=== PATIENT | female | born 1945 | race Hispanic/Latino ===

== ENCOUNTER 2021-02-10 06:29 | Day surgery (SDC) | payer MEDICARE, OTHER ==
[2021-02-10] MEDS ORDERED: SODIUM CHLORIDE 0.9% 500 ML 500 ML IV SCH (07:00)
[2021-02-10 07:24] LABS: Basophils # (Auto) 0.2 K/mm3 (0.0-0.1); Basophils % (Auto) 1.5 % (0.0-1.8); Hemoglobin 13.5 gm/dl (10.1-14.3); Lymphocytes # (Auto) 1.9 K/mm3 (1.2-5.4); Lymphocytes % (Auto) 17.3 % (13.4-35.0); Mean Corpuscular HGB Conc 33 % (30-34); Mean Corpuscular Volume 92 fl (79-97); Monocytes # (Auto) 0.1 K/mm3 (0.0-0.8); Monocytes % (Auto) 1.2 % (0.0-7.3); Platelet Count 289 K/mm3 (140-440); Red Blood Count 4.48 M/mm3 (3.65-5.03)
[2021-02-10 07:32] LABS: INR 1.03 (0.87-1.13)
[2021-02-10 07:33] LABS: BUN/Creatinine Ratio 32; Blood Urea Nitrogen 32 mg/dL (7-17); Calcium 9.2 mg/dL (8.4-10.2); Hemolysis Index 3; Partial Thromboplastin Time 24.1 Sec. (24.2-36.6)
[2021-02-10 08:47] LABS: Alanine Aminotransferase 21 units/L (7-56); Albumin 3.7 g/dL (3.9-5); BUN/Creatinine Ratio 34; Blood Urea Nitrogen 31 mg/dL (7-17); Calcium 9.2 mg/dL (8.4-10.2); Hemolysis Index 34
[2021-02-10] MEDS ORDERED: HEPARIN/NS 5000 UNIT/500ML 1,000 ML IR ONE (09:41)
[2021-02-10] MEDS ORDERED: HEPARIN 10,000 UNITS/10 ML VIAL ONE (09:41)
[2021-02-10] MEDS ORDERED: LIDOCAINE (2%) 20 MG/1 ML VIAL 20 ML MDV INFILTRATI ONE ×2 (09:42→10:53)
[2021-02-10] MEDS ORDERED: VERAPAMIL 5 MG/2 ML INJ ONE (09:42)
[2021-02-10] MEDS ORDERED: NITROGLYCERIN SYRINGE 3 ML ONE (09:42)
[2021-02-10] MEDS ORDERED: INSULIN REGULAR, HUMAN 100 UNITS/1 ML ONE (09:58)
[2021-02-10] MEDS ORDERED: diphenhydrAMINE 50 MG/ML VIAL ONE (10:04)
[2021-02-10] MEDS ORDERED: FAMOTIDINE 20 MG/2 ML INJ IV ONE (10:04)
[2021-02-10] MEDS ORDERED: methylPREDNISolone Sod Succinate 125 MG/2 ML INJ ONE (10:04)
[2021-02-10] MEDS: MIDAZOLAM 2 MG/2 ML INJ ONE ×2 (10:43→10:50)
[2021-02-10] MEDS: fentaNYL 100 MCG/2 ML INJ ONE ×3 (10:43→11:19)
[2021-02-10] MEDS ORDERED: NITROGLYCERIN 600 MCG/3 ML SYRINGE ART-SHEATH ONE (10:45)
--- NOTE | 2021-02-10 14:03 | Cardiac Catherization Report ---
DATE OF PROCEDURE: 02/10/2021 REFERRING PHYSICIAN: Dr. Chao. INDICATION FOR PROCEDURE: The patient is a very pleasant 75-year-old female with known multivessel coronary artery disease, diabetes, hypertension with chronic shortness of breath, on home O2, referred here for left and right heart catheterization. Risks, benefits and alternatives were explained at length prior to obtaining informed consent. DESCRIPTION OF PROCEDURE: The patient was brought to catheterization lab in postabsorptive state, prepped and draped in sterile fashion. Erich's test in right hand is normal. 2 mL of 2% lidocaine was anesthetized to the right wrist. A standard 6-Czech hydrophilic sheath was used to cannulate the right radial artery via modified Seldinger technique. Next, a standard 7-Czech sheath was placed in the right femoral vein via modified Seldinger technique. Left heart catheterization was performed via the right radial artery. A JL3.5 catheter was used in left main. No dampening or ventricularization. Angiography was performed in multiple projections. JR4 catheter was used to cross the aortic valve under fluoroscopic guidance. Left ventriculography performed in 30 degrees DAVIS and 30 degrees SAUNDRA projections via hand injection. The was catheter flushed. Manual pullback performed with continuous pressure monitoring. Catheter was used to engage the right coronary. No dampening or ventricularization. Cineangiography performed in multiple projections. JR4 catheter was used to cross the aortic valve under fluoroscopic guidance. Left ventriculography performed in 30 degrees DAVIS and 30-degree SAUNDRA projections via hand injection. Catheter was flushed. Manual pullback was performed with continuous pressure monitoring. Catheter used to engage the right coronary. No dampening or ventricularization. Cineangiography performed in multiple projections. Next, catheter removed from the body of a wire. Next, we turned our attention to the right heart catheterization. A 6-Czech balloon-tipped Scott was advanced under fluoroscopic guidance into the right ventricle. Scott wire was used to place in the pulmonary capillary wedge pressure position carefully. Wedge pressure is taken. Pulmonary arterial/RV/RA/IVC/SVC pressures and sats are performed. FA sat is performed. Next, catheter was removed from the body, sheath was removed, manual pressure to achieve hemostasis. Patient had no complications. Tolerated the procedure well. I directly supervised the administration of moderate sedation from 10:41 a.m. to 11:30 a.m. No immediate complications were identified. FINDINGS: Aortic pressure is 180/80, LV pressure is 180, LVEDP of 18 mmHg. Left ventricle reveals normal systolic performance with estimated ejection fraction of 55-60%. Pulmonary capillary wedge pressure is 20. PA pressure is 50 with a mean of 30. RV pressure is 40 with RV mean of 17. RA mean is 12. PA sat is 66. RA sat is 65. RV sat is 67. IVC sat is 65. SVC sat is 65. Cardiac output is 2.3. Cardiac index is 2.4. Nelsy is 30.5. Qp/Qs is 1.07. SVR is 3348. PVR is 195. TPVR is 977. CORONARY ANATOMY: This is a strongly right dominant system. Left main without significant disease, bifurcates into left anterior descending, left circumflex. LAD is a moderate-sized vessel coursing the anterior groove, wraps around the apex. Small vessels in the LAD. Stents in the mid LAD and diagonal are patent. 25% mid LAD stenosis distal to the stent. No obstructive disease identified. Left circumflex is a moderate-sized vessel, courses AV groove. Stent in the OM trunk was patent. There is a 25% stenosis distal to the stent, but no obstructive disease identified. Right coronary is a large vessel, courses AV groove, distally bifurcates posterior descending and posterolateral branches. There is mild small vessel disease distally, but no significant obstructive disease identified. CONCLUSION: 1. Moderate nonobstructive coronary disease in this right dominant system. Patent stents noted in the circumflex, LAD, and diagonal. 25% mid OM1 stenosis, 25% mid LAD stenosis. Right coronary with nonobstructive disease proximal and mid segment. Moderate diffuse small vessel disease distally. 2. Normal left ventricular systolic performance. Estimated ejection fraction 55-60%. 3. No evidence of aortic stenosis. 4. High normal LVEDP. 5. Mild to moderate pulmonary hypertension with a PA pressure of 50, mean of 30, pulmonary capillary wedge pressure of 20, RA mean of 12, LVEDP of 20. These findings are consistent with mild to moderate pulmonary hypertension. At this point, the patient is clinically stable. Follow up with Dr. Chao in the office. Standard radial and groin care. Results of procedure was explained to the patient and family. All questions and concerns were addressed. TID: [id number] RECEIPT: [id number] SRIRAM/ELENO
[2021-02-10 14:14] VITALS: BP 148/65
[2021-02-10] MEDS ORDERED: KETOROLAC 30 MG/1 ML INJ ONE (14:40)
[2021-02-10] MEDS ORDERED: HYDROcodone/ACETAMINOPHEN 5-325 MG TAB PO NR (14:45)
--- NOTE | 2021-02-10 15:18 | Short Stay Summary ---
Short Stay Documentation Date of service: 02/10/21 - History H&P: obtained from office - Allergies and Medications Current Medications: Allergies Fulvyui-Bei-Mkh Reductase Inhibitor Allergy (Verified 02/10/21 06:58) cough, joint pain contrast dye Allergy (Uncoded 02/10/21 06:58) Hives Home Medications Medication Instructions Recorded Confirmed Last Taken Type Alirocumab [Praluent Pen] 150 mg SQ Q2W 02/10/21 02/10/21 02/09/21 History Aspirin [Adult Aspirin] 81 mg PO DAILY 02/10/21 02/10/21 02/10/21 History ISOSORBIDE MONOnitrate [Imdur ER] 30 mg PO DAILY 02/10/21 02/10/21 02/09/21 History Insulin Detemir (Nf) [Levemir 20 unit SQ BID 02/10/21 02/10/21 02/09/21 History Flextouch (Nf)] Levothyroxine [Synthroid] 50 mcg PO QAM 02/10/21 02/10/21 02/10/21 History Metformin HCl [metFORMIN] 1,000 mg PO DAILY 02/10/21 02/10/21 02/09/21 History allopurinoL [Zyloprim] 300 mg PO QDAY 02/10/21 02/10/21 02/10/21 History Active Medications Hydrocodone Bitart/Acetaminophen (Hydrocodone/Acetaminophen 5-325 Mg Tab) 1 each PO ONCE NR Stop: 02/10/21 16:00 Sodium Chloride (Nacl 0.9% 500 Ml) 500 mls @ 50 mls/hr IV DIRECT DARIO Stop: 02/10/21 16:59 Last Admin: 02/10/21 09:07 Dose: 50 mls/hr Documented by: - Physical exam Integumentary: other (Cath site right radial inspected, Sammie Tegaderm in place, no bleeding or hematoma noted. Cath site right groin inspected, Telfa Tegaderm in place, no bleeding or hematoma noted.) - Brief post op/procedure progress note Date of procedure: 02/10/21 Pre-op diagnosis: Angina Post-op diagnosis: other (Moderate nonobstructive coronary artery disease) Procedure: LHCsee dictated cath report Anesthesia: local Estimated blood loss: minimal Condition: stable - Disposition Condition at discharge: Good Disposition: DC-01 TO HOME OR SELFCARE - Discharge Diagnoses (1) Coronary artery disease Status: Acute Short Stay Discharge Plan Activity: advance as tolerated Diet: low fat, low cholesterol, low salt Wound: open to air, keep clean and dry, per your surgeon's advice Follow up with: OCTAVIA SUAREZ MD [Primary Care Provider] - 7 Days ALEN CHAO MD [Staff Physician] - 7 Days (Patient should follow-up with Dr Chao in our [facility] office on 02/24/2021 at 11:15 AM. #[id number]) [facility]
--- NOTE | 2021-02-12 11:46 | Electrocardiograph Report ---
[facility] Test Date: 2021-02-10 Test Time: 08:40:23 Pat Name: PALOMA MARINELLI Department: Room: Gender: F Media Director: PETEY : 1945 Requested By: CANDIDA ADAMS Order Number: [id number] Reading MD: Maya Nathan Measurements Intervals [place] Rate: 64 P: 41 MD: 156 QRS: -17 QRSD: 106 T: 28 QT: 433 QTc: 447 Interpretive Statements Sinus rhythm Inferior infarct, old No previous ECG available for comparison Electronically Signed On 02-12-2021 11:45:43 EDT by Maya Nathan
== END 2021-02-10 15:55 | disposition home or self-care (01) ==
LOC: CATHLABREC 06:29
PROVIDERS: ATTEND Internal Medicine
DX: R06.02 Shortness of breath (principal); I25.10 Atherosclerotic heart disease of native coronary artery without angina pectoris; E11.9 Type 2 diabetes mellitus without complications; I10 Essential (primary) hypertension; E78.00 Pure hypercholesterolemia, unspecified; J45.909 Unspecified asthma, uncomplicated; D64.9 Anemia, unspecified; M19.90 Unspecified osteoarthritis, unspecified site; M10.9 Gout, unspecified; E03.9 Hypothyroidism, unspecified; Z98.49 Cataract extraction status, unspecified eye; Z95.5 Presence of coronary angioplasty implant and graft; Z90.49 Acquired absence of other specified parts of digestive tract; Z87.442 Personal history of urinary calculi; Z90.710 Acquired absence of both cervix and uterus; Z98.890 Other specified postprocedural states
CPT/HCPCS: 36415; 80053; 82962; 84132; 85025; 85610; 85730; 93005; 93460; 99156; 99157; C1769; C1894; J1200; J1644; J1885; J2250; J2930; J3010; J7040; 80048; J1815; Q9967